=== PATIENT | female | born 1965 | race Caucasian/White ===

== ENCOUNTER → 2017-04-01 | Outpatient (CLI) | payer OTHER ==
[~2017-04-01] MED LIST: CALC-451 PO; CALC600T4 PO; GLUC100015 PO; HYDR-757; MULT-26 PO; PRAS25TA PO; PROG1.3G VG; [UNRECOGNIZED DRUG - CODE] PO; [UNRECOGNIZED DRUG - OTHER] PO; progesterone cream TP
== END | disposition home or self-care (01) ==
LOC: STAR 08:42
PROVIDERS: ATTEND Surgery
DX: Z02.9 Encounter for administrative examinations, unspecified (principal)

== ENCOUNTER 2017-04-12 06:12 | Day surgery (SDC) | payer OTHER ==
[2017-04-01 09:01] VITALS: BP 111/58
[~2017-04-12] VITALS: Ht 160 cm; Wt 67.0 kg
[2017-04-12] MEDS ORDERED: BUPIVACAINE/PF-EPI 0.5% 1:200K ONE (06:40)
[2017-04-12] MEDS ORDERED: LIDOCAINE 1%, 2ML ONE (06:45)
[2017-04-12] MEDS ORDERED: LACTATED RINGERS 1,000 ML IV SCH (06:47)
[2017-04-12] MEDS ORDERED: REMIFENTANIL 1 MG ONE (06:52)
[2017-04-12 06:59] VITALS: BP 111/58
[2017-04-12] MEDS ORDERED: LIDOCAINE 1%, 2ML SQ PRN (07:00)
[2017-04-12] MEDS ORDERED: MIDAZOLAM 1 MG/ML, 2ML ONE (07:14)
[2017-04-12] MEDS ORDERED: FENTANYL PF 250 MCG/5ML ONE (07:14)
[2017-04-12] MEDS ORDERED: SUCCINYLCHOLINE 20 MG/ML, 10ML ONE (07:18)
[2017-04-12] MEDS ORDERED: DEXAMETHASONE 4 MG/ML, 1ML ONE (07:18)
[2017-04-12] MEDS ORDERED: PROPOFOL 10 MG/ML, 20ML ONE (07:18)
[2017-04-12] MEDS ORDERED: HYDROcodone/APAP 7.5-325MG/15ML UDC PO PRN (07:30)
[2017-04-12] MEDS ORDERED: FENTANYL PF 100 MCG/2ML IV PRN (07:30)
[2017-04-12] MEDS ORDERED: LABETALOL 5MG/ML, 20ML IV PRN (07:30)
[2017-04-12] MEDS ORDERED: ONDANSETRON 2MG/ML, 2ML IVPush PRN (07:30)
[2017-04-12] MEDS ORDERED: OXYcodone 5 MG/5 ML ORAL.SOL UDC PO PRN (07:30)
[2017-04-12] MEDS ORDERED: MEPERIDINE/PF 25MG/0.5ML IVPush PRN (07:30)
[2017-04-12] MEDS ORDERED: hydrALAzine 20 MG/ML, 1ML IV PRN (07:30)
[2017-04-12] MEDS ORDERED: MIDAZOLAM 1 MG/ML, 2ML IV PRN (07:30)
[2017-04-12] MEDS ORDERED: PROMETHAZINE 25 MG/ML, 1ML IV PRN (07:30)
[2017-04-12] MEDS ORDERED: EPHEDRINE 50 MG/ML, 1ML IVPush PRN (07:30)
[2017-04-12] MEDS ORDERED: HYDROmorphone 1 MG/ML, 1ML IV PRN (07:30)
[2017-04-12] MEDS ORDERED: ACETAMINOPHEN 325 MG TABLET PO PRN (07:30)
[2017-04-12] MEDS ORDERED: ACETAMINOPHEN 650 MG/20.3 ML UDC ONE (09:13)
[2017-04-12] MEDS ORDERED: OXYcodone 5 MG/5 ML ORAL.SOL UDC ONE (09:13)
== END 2017-04-12 10:50 ==
LOC: OUT 06:12
PROVIDERS: ATTEND Surgery
DX: D34 Benign neoplasm of thyroid gland (principal); F17.210 Nicotine dependence, cigarettes, uncomplicated; Z90.710 Acquired absence of both cervix and uterus; Z98.890 Other specified postprocedural states; Z80.3 Family history of malignant neoplasm of breast; Z72.89 Other problems related to lifestyle
CPT/HCPCS: 60220; 88307; 88333; C1760; J0330; J1100; J2250; J2704; J3010; J3490; J7120

== ENCOUNTER → 2017-09-17 | Outpatient (CLI) | payer OTHER ==
[~2017-09-17] MED LIST changes: +[UNRECOGNIZED DRUG - CODE] PO; -[UNRECOGNIZED DRUG - CODE] PO
== END | disposition home or self-care (01) ==
LOC: CFH 10:05
PROVIDERS: ATTEND Obstetrics & Gynecology
DX: Z12.31 Encounter for screening mammogram for malignant neoplasm of breast (principal)
CPT/HCPCS: 77063; G0202

== ENCOUNTER → 2020-03-25 | Outpatient (CLI) | payer OTHER | END | disposition home or self-care (01) | LOC: CFH 14:27 | PROVIDERS: ATTEND Nurse Practitioner Family | DX: Z12.31 Encounter for screening mammogram for malignant neoplasm of breast (principal) | CPT/HCPCS: 77063; 77067 ==